=== PATIENT | male | born 1935 | race Caucasian/White ===

== ENCOUNTER 2024-11-24 09:03 | Emergency (ER) | payer MEDICAID ==
[~2024-11-24] VITALS: Ht 172.7 cm; Wt 55.0 kg
[2024-11-24 09:05] VITALS: O2SAT 99
[2024-11-24] MEDS: SODIUM CHLORIDE 0.9% (SEPSIS BOLUS) IV ONE (09:31)
[2024-11-24] MEDS: PIPERACILLIN/TAZO 3.375G/50ML 50 ML IV ONE (09:31)
[2024-11-24 09:52] LABS: BASOPHILS % 0.2 % (0.0-2.0); EOSINOPHILS % 0.5 % (0.0-5.0); HEMATOCRIT. 37.3 % (42.0-52.0); HEMOGLOBIN. 12.3 g/dL (14.0-18.0); LYMPHOCYTES % 8.6 % (20.0-50.0); MEAN PLATELET VOLUME 8.2 fl (7.4-10.4); MONOCYTES % 5.9 % (2.0-8.0); NEUTROPHILS % 84.8 % (40.0-76.0); PLATELET 172 x1000/uL (130-400); RED BLOOD CELL COUNT 4.02 mill/uL (4.7-6.1); RED CELL DISTRIBUTION WIDTH 14.4 % (11.6-14.6)
[2024-11-24 10:05] LABS: CREATININE 0.7 mg/dL (0.6-1.3); UREA NITROGEN BLOOD 13 mg/dL (9-23)
[2024-11-24 10:06] LABS: TROPONIN I HIGH SENSITIVITY 8 ng/L (3.0-53)
[2024-11-24 10:07] LABS: ASPARTATE AMINOTRANSFERASE 29 IU/L (<34); BILIRUBIN DIRECT 0.2 mg/dL (<=3.0); BILIRUBIN TOTAL 0.5 mg/dL (0.1-1.0); PROTEIN TOTAL 6.5 g/dL (6.0-8.3)
[2024-11-24 10:13] LABS: INR 1.0
[2024-11-24] MEDS: VANCOMYCIN 1G PREMIX 200 ML IV ONE (10:20)
[2024-11-24 18:59] VITALS: BP 118/61; PULSE 87; RESP 22; TEMP 37.2; O2SAT 96
== END 2024-11-24 19:13 | disposition home or self-care (01) ==
LOC: EDBD 09:03 → ER 09:03
DX: J18.9 Pneumonia, unspecified organism (principal); G20.A1 Parkinson's disease without dyskinesia, without mention of fluctuations; R06.02 Shortness of breath; I10 Essential (primary) hypertension; F41.9 Anxiety disorder, unspecified; Z79.899 Other long term (current) drug therapy; Z86.73 Personal history of transient ischemic attack (TIA), and cerebral infarction without residual deficits
CPT/HCPCS: 80076; 80048; 83880; 83605; 85025; 85610; 87040; 84484; 36415; 84145; 71045; 70450; 93005; 96367; 96365; 99285; J2543; J3373; J7030; Z7610; A4606